=== PATIENT | male | born 1985 | race Caucasian/White ===

== ENCOUNTER 2018-05-28 20:41 | Emergency (ER) | payer SELFPAY ==
[~2018-05-28] VITALS: Ht 180.3 cm; Wt 114.0 kg
[2018-05-29] MEDS ORDERED: IBUPROFEN 200MG TABLET ONE (01:37)
[2018-05-29] MEDS ORDERED: HYDROCODONE/ACETAMINOPHEN 5/325MG TABLET PO ONE (04:15)
[2018-05-29] MEDS ORDERED: TETANUS, DIPHTHERIA, PERTUSSIS VAC/PF 0.5ML (>7YR OLD) IM ONE (04:15)
[2018-05-29] MEDS ORDERED: ONDANSETRON 4MG ODT PO STA (05:19)
[2018-05-29] MEDS ORDERED: MORPHINE SULFATE 10 MG/ML CPJ IM ONE (05:30)
[2018-05-29] MEDS ORDERED: KETOROLAC 60MG/2ML VIAL IM ONE (05:30)
[2018-05-29 06:15] VITALS: BP 136/78
== END 2018-05-29 07:02 | disposition home or self-care (01) ==
LOC: ER 20:41
DX: S80.211A Abrasion, right knee, initial encounter (principal); R07.89 Other chest pain; M54.2 Cervicalgia; R10.2 Pelvic and perineal pain; Z98.890 Other specified postprocedural states; V43.52XA Car driver injured in collision with other type car in traffic accident, initial encounter; Y93.89 Activity, other specified; Y92.488 Other paved roadways as the place of occurrence of the external cause
CPT/HCPCS: 71045; 72125; 72170; 73562; 90471; 90715; 96372; 99284; J2270; Q0162